=== PATIENT | female | born 1995 | race Caucasian/White ===

== ENCOUNTER 2018-03-21 21:03 | Emergency (ER) | payer OTHER ==
[2018-03-21 21:27] VITALS: RESP 18; TEMP 98.6
--- NOTE | 2018-03-21 22:06 | ED ---
Lower Extremity Injury HPI - General Chief Complaint: Extremity Injury, Lower Stated Complaint: feet pain Time Seen by Provider: 03/21/18 21:24 Source: patient, RN notes reviewed Mode of arrival: ambulatory Limitations: no limitations - History of Present Illness Initial Comments: This is a 22-year-old female presents to the emergency department with chief complaint of bilateral foot pain. Patient states that she developed discoloration to the toes on her left foot 2 weeks ago. She states that approximately 5 days later the toes became painful. She followed up with her primary care provider who diagnosed her with Raynaud's. Patient was instructed to keep her toes warm. She states that pain is improved by keeping them warm. She is concerned that something else is going on that she has not had total improvement in her symptoms. She states that she feels a tingling sensation in the toes of her right foot and in the index finger on her left hand. She states that she feels the Raynaud's coming on. Patient was not started on any oral or topical vasodilators. She denies any fevers or chills, chest pain shortness of breath, abdominal pain, nausea or vomiting, numbness or tingling. - Related Data Home Medications Medication Instructions Recorded Confirmed Control 1 tab PO DIRECTED 04/05/15 04/05/15 Levothyroxine Sodium [Synthroid] 75 mcg PO DAILY 04/05/15 04/05/15 metFORMIN HCL [Glucophage] 500 mg PO DAILY 04/05/15 04/05/15 Previous Rx's Medication Instructions Recorded Ibuprofen [Motrin] 600 mg PO Q6HR PRN #20 tab 04/05/15 amLODIPine [Norvasc] 5 mg PO DAILY #14 tab 03/21/18 Allergies Allergy/AdvReac Type Severity Reaction Status Date / Time some cosmetics Allergy Rash/Hives Uncoded 04/05/15 10:17 Review of Systems ROS Statement: Those systems with pertinent positive or pertinent negative responses have been documented in the HPI. ROS Other: All systems not noted in ROS Statement are negative. Past Medical History Past Medical History: Thyroid Disorder Additional Past Medical History / Comment(s): pcos, hypothyroid History of Any Multi-Drug Resistant Organisms: None Reported Past Surgical History: Adenoidectomy, Tonsillectomy Past Psychological History: No Psychological Hx Reported Smoking Status: Never smoker Past Alcohol Use History: None Reported Past Drug Use History: None Reported General Exam - General Exam Comments Initial Comments: General: Awake and alert, well-developed; in no apparent distress. HEENT: Head atraumatic, normocephalic. Pupils are equal, round and reactive to light. Extraocular movements intact. Oropharynx moist without erythema or exudate. Neck: Supple. Normal ROM. Cardiovascular: Regular rate and rhythm. No murmurs, rubs or gallops. Chest symmetrical. Pedal pulses are 2+ equal and palpable bilaterally. Respiratory: Lungs clear to auscultation bilaterally. No wheezes, rales or rhonchi. Normal respiratory effort with no use of accessory muscles. Musculoskeletal: Normal range of motion bilateral upper and lower chimneys. There is tenderness on palpation of the left toes. Ambulating normally. Skin: Blanchable, purple discoloration of toes on the left foot. Toes are cool to the touch. Sensation is intact. Neurological: Alert and oriented x3. CN II-XII grossly intact. Speech is fluent and answers are appropriate. No focal neuro deficits. Psychiatric: Normal mood and affect. No overt signs of depression or anxiety noted. Limitations: no limitations Course Vital Signs 03/21/18 21:23 Temperature 98.6 F Pulse Rate 115 H Respiratory 18 Rate Blood Pressure 159/99 O2 Sat by Pulse 99 Oximetry Medical Decision Making - Medical Decision Making This is a 22-year-old female who presents to the emergency department with chief complaint of foot pain. Patient was diagnosed with ring nods a couple of days ago as she has noticed discoloration and pain to the toes on her left foot. Patient was not started on any oral or topical vasodilators. She reports improvement in her symptoms and feels the same symptoms coming on in her right toes and index finger of the left hand. There is blanchable, purple discoloration to the toes on the left foot. Toes are cool to the touch. Patient is neurovascularly intact. Case was discussed with attending physician , Dr. Nunez. Recommended starting patient on a calcium channel roberto which is first line for Raynaud's. Patient is noted to have a high blood pressure here in the emergency department. Patient states that she normally has a higher blood pressure. She will be started on amlodipine 5 mg. Instructed patient to follow up next week with her primary care provider. Patient is in agreement with plan and voices understanding. She is in no acute distress and will be discharged home at this time. All questions answered. Disposition Clinical Impression: Raynauds disease Disposition: HOME SELF-CARE Condition: Good Instructions: Raynaud Disease (ED) Additional Instructions: Please take medications as prescribed. Please follow up with primary care provider within 1-2 days. Return to emergency department if symptoms should worsen or any concerns arise. Prescriptions: amLODIPine [Norvasc] 5 mg PO DAILY #14 tab Is patient prescribed a controlled substance at d/c from ED?: No Referrals: Jennifer Masters DO [Primary Care Provider] - 1-2 days Time of Disposition: 22:06
[2018-03-21 22:13] VITALS: BP 159/89; PULSE 89
== END 2018-03-21 22:11 | disposition home or self-care (01) ==
LOC: EC 21:03
DX: I73.00 Raynaud's syndrome without gangrene (principal); R03.0 Elevated blood-pressure reading, without diagnosis of hypertension; Z91.048 Other nonmedicinal substance allergy status; E03.9 Hypothyroidism, unspecified; Z79.3 Long term (current) use of hormonal contraceptives; Z79.84 Long term (current) use of oral hypoglycemic drugs; Z79.899 Other long term (current) drug therapy
CPT/HCPCS: 99283

== ENCOUNTER → 2018-06-04 | Outpatient (CLI) | payer OTHER ==
[2018-06-04 13:01] LABS: Blood Urea Nitrogen 15 mg/dL (7-17)
--- NOTE | 2018-06-04 20:59 | CT ---
EXAMINATION TYPE: CT angio thoracic and abdominal with bilateral lower extremity Run Off DATE OF EXAM: 06/04/2018 COMPARISON: None HISTORY: 22-year-old female ischemic necrosis of feet with color changes CT DLP: 1897.3 mGycm Automated exposure control for dose reduction was used. TECHNIQUE: CT scanning of the chest, abdomen, and pelvis with bilateral lower extremity runoff perfor med after IV contrast administration. Patient injected with 125 mL of Isovue 370. Coronal and sagitta l reconstructions performed. 3-D reconstructions generated on a dedicated independent workstation. FINDINGS: VASCULATURE: Motion artifact at the base of the heart limiting assessment of the aortic root. Thoracic aorta is normal caliber with conventional arch vessel branching anatomy. The celiac axis, SMA, bilateral grace renal arteries, and VLAD are patent. No evidence for abdominal aortic aneurysm. The iliac arteries are patent. On the right, the common and superficial femoral arteries as well as the profunda femoral artery are patent. At the level popliteal artery, there is a focal bleb or short segment thrombus of the vessel at or ju st above the level of the joint line. There are 2 prominent collateral branches which have their take off prior to this abnormal segment. There is satisfactory reconstitution of the popliteal artery beyo nd this level with normal anterior tibial artery and tibial peroneal trunk and three-vessel runoff in to the foot though the peroneal artery becomes diminutive. On the left, the common and superficial femoral arteries as well as the profunda femoral artery are p atent. At the level of the popliteal artery, there is sebastian vessel occlusion for a length of 4.5 cm and even tual reconstitution of the popliteal artery near the level of the fibular head. 2 prominent collatera l branches have a take off just at the level of the occlusion. The anterior tibial artery, tibial per lozano trunk, and its branches are all diminutive. The peroneal artery in particular becomes very diminutive at the ankle and the anterior tibial artery is seen to the level of the hindfoot. There is diminutive single vessel runoff into the foot. CHEST: Heart normal size without pericardial effusion. No mediastinal lymphadenopathy. Bulky and lobulated a ppearing thyroid gland. This may represent goiter and can be further evaluated with thyroid ultrasoun d. Bilateral axillary lymphadenopathy measuring up to 1.7 cm. Mild dependent atelectasis in the lungs without pleural effusion. ABDOMEN: Liver is enlarged measuring 21.5 cm. Suspect underlying fatty infiltration. Gallbladder, adrenal glands, kidneys, spleen, and pancreas appear within normal limits. Scattered prominent retroperitoneal lymph nodes measuring up to 1 cm and scattered mesenteric lymph n odes measuring up to 9 mm. No dilated small bowel, free fluid, or free air. Mild stool burden. No pericolonic inflammatory dunham e. Pelvis: Bladder urine distended. Uterus and both ovaries are visualized. No abnormal fluid collection in the pelvis. External iliac chain lymph nodes measure up to 9 mm on the right and 1.3 cm on the left. Inguinal lym ph nodes are present measuring up to 1.7 cm on the right. Bones: There appears to be normal origin of the medial head gastrocnemius. No osseous destructive process. Diffuse soft tissue swelling within the feet. IMPRESSION: 1. On the right, there is a focal short segment web or thrombus of the popliteal artery at or just ab ove the knee joint line level. The popliteal artery immediately reconstitutes but there are 2 promine nt collateral vessels that have their takeoff just above this web. 2. On the left, there is a 4.5 cm long segment of occluded popliteal artery that weakly reconstitutes at the level of the fibular head and provides weak supply to the 3 vessels of the leg. The peroneal artery becomes very diminutive at the ankle and the anterior tibial artery is seen to the level of th e hindfoot. Similar to the contralateral side, there are 2 prominent collateral vessels that have the ir takeoff just above the abnormal popliteal artery segment. 3. No deviated course of the popliteal arteries or abnormal muscle origin to the medial head gastrocn emius. Consider the possibility of underlying fibrous bands as a potential source of popliteal artery entrapment. 4. Mild bilateral axillary, inguinal, mesenteric, retroperitoneal, and pelvic lymphadenopathy. Correl ate for possible etiologies such as systemic infections including fungal infections, granulomatous di sease such as sarcoidosis, autoimmune disorders, or connective tissue diseases. The axillary and ingu inal lymph nodes can be monitored clinically and if any progressive enlargement is noted, tissue samp ling can be performed to exclude a more aggressive etiology. 5. Hepatomegaly (21.5 cm) with hepatic steatosis.
== END | disposition home or self-care (01) ==
LOC: RADCTMAIN 12:32
PROVIDERS: ATTEND Surgery Vascular Surgery
DX: I70.202 Unspecified atherosclerosis of native arteries of extremities, left leg (principal); K76.0 Fatty (change of) liver, not elsewhere classified; R16.0 Hepatomegaly, not elsewhere classified; R59.0 Localized enlarged lymph nodes
CPT/HCPCS: 82565; 84520; 75635; 71275; 36415; Q9967

== ENCOUNTER → 2018-11-20 | Outpatient (CLI) | payer OTHER ==
[2018-11-20 12:46] LABS: Partial Thromboplastin Time 28.4 sec (22.0-30.0); Prothrombin Time 10.7 sec (9.0-12.0)
[2018-11-20 12:54] LABS: Anisocytosis Slight; Basophils % (A) 0 %; Eosinophils # (A) 0.1 k/uL (0-0.7); Eosinophils % (A) 2 %; HCT 35.6 % (34.0-46.0); HGB 11.3 gm/dL (11.4-16.0); Lymphocytes # (A) 1.6 k/uL (1.0-4.8); Lymphocytes % (A) 25 %; MCH 25.1 pg (25.0-35.0); MCHC 31.7 g/dL (31.0-37.0); MCV 79.1 fL (80.0-100.0); Mean Platelet Volume 6.9; Microcytosis Slight; Monocytes # (A) 0.3 k/uL (0-1.0); Monocytes % (A) 5 %; Neutrophils % (A) 65 %; Platelet Count 329 k/uL (150-450); RDW 17.4 % (11.5-15.5); WBC 6.2 k/uL (3.8-10.6)
[2018-11-20 14:13] LABS: Appearance,Urine Clear (Clear); Bacteria,Urine Rare /hpf; Bilirubin,Urine Negative (Negative); Blood,Urine Negative (Negative); Color,Urine Yellow; Glucose,Urine (UA) Negative (Negative); Hyaline Casts,Urine 4 /lpf (0-2); Ketones,Urine Negative (Negative); Leukocyte Esterase,Urine Negative (Negative); Mucus,Urine Few /hpf; Nitrite,Urine Negative (Negative); Protein,Urine 1+ (Negative); RBC,Urine 1 /hpf (0-5); Specific Gravity,Urine 1.039 (1.001-1.035); Squamous Epithelial Cell,Urine <1 /hpf (0-4); Urobilinogen,Urine <2.0 mg/dL (<2.0); WBC,Urine 4 /hpf (0-5)
[2018-11-20 16:20] LABS: Albumin/Globulin Ratio 1.03 (1.60-3.17); Anion Gap 7.8 mmol/L (4.00-12.00); Calcium 9.2 mg/dL (8.7-10.3); Carbon Dioxide 22.2 mmol/L (21.6-31.8); Globulin 3.9 g/dL (1.6-3.3); Potassium 4.2 mmol/L (3.5-5.5); Total Bilirubin 0.3 mg/dL (0.2-1.2); Total Protein 7.9 g/dL (6.2-8.2)
== END | disposition home or self-care (01) ==
LOC: LABWHC1 11:47
PROVIDERS: ATTEND Surgery Vascular Surgery
DX: Z01.812 Encounter for preprocedural laboratory examination (principal); M62.262 Nontraumatic ischemic infarction of muscle, left lower leg
CPT/HCPCS: 36415; 80053; 81001; 85025; 85610; 85730; 87086

== ENCOUNTER 2020-09-20 11:55 | Emergency (ER) | payer OTHER ==
[2020-09-20 12:05] VITALS: BP 161/106; PULSE 96; TEMP 98.3
--- NOTE | 2020-09-20 12:06 | ED ---
General Adult HPI - General Source: patient, RN notes reviewed Mode of arrival: ambulatory Limitations: no limitations <Mckay Stoner - Last Filed: 09/20/20 12:00> <Stephanie Busby - Last Filed: 09/20/20 16:54> - General Stated complaint: chest pain, back pain Time Seen by Provider: 09/20/20 12:00 - History of Present Illness Initial comments: This a 24-year-old female presents emergency Department chief complaint of pleuritic chest pain, shortness breath. Patient states she that she was having an asthma issues but states it has not gone away on alleviated with her inhaler. Patient states that she talk to her PCP is concerned about possible blood clot. Patient does have an ongoing clotting disorder and which she has had a pop liteal bypass. Patient states that this was done hand Guffey. Patient is not taking blood thinners currently. Patient is on control but states that it's not hormonal. Patient denies any increasing leg pain or swelling. (Mckay Stoner) - Related Data Home Medications Medication Instructions Recorded Confirmed Control 1 tab PO DIRECTED 04/05/15 04/05/15 Levothyroxine Sodium [Synthroid] 75 mcg PO DAILY 04/05/15 04/05/15 metFORMIN HCL [Glucophage] 500 mg PO DAILY 04/05/15 04/05/15 Previous Rx's Medication Instructions Recorded Ibuprofen [Motrin] 600 mg PO Q6HR PRN #20 tab 04/05/15 amLODIPine [Norvasc] 5 mg PO DAILY #14 tab 03/21/18 Allergies Allergy/AdvReac Type Severity Reaction Status Date / Time some cosmetics Allergy Rash/Hives Uncoded 09/20/20 12:00 Review of Systems ROS Other: All systems not noted in ROS Statement are negative. <Mckay Stoner - Last Filed: 09/20/20 12:00> ROS Other: All systems not noted in ROS Statement are negative. <Stephanie Busby - Last Filed: 09/20/20 16:54> ROS Statement: Those systems with pertinent positive or pertinent negative responses have been documented in the HPI. Past Medical History Past Medical History: Thyroid Disorder Additional Past Medical History / Comment(s): pcos, hypothyroid History of Any Multi-Drug Resistant Organisms: None Reported Past Surgical History: Adenoidectomy, Tonsillectomy Past Psychological History: No Psychological Hx Reported Past Alcohol Use History: None Reported Past Drug Use History: None Reported <Mckay Stoner - Last Filed: 09/20/20 12:00> General Exam General appearance: alert, in no apparent distress Head exam: Present: atraumatic, normocephalic, normal inspection Eye exam: Present: normal appearance, PERRL, EOMI. Absent: scleral icterus, conjunctival injection, periorbital swelling ENT exam: Present: normal exam, normal oropharynx, mucous membranes moist Neck exam: Present: normal inspection. Absent: tenderness, meningismus, lymphadenopathy Respiratory exam: Present: normal lung sounds bilaterally. Absent: respiratory distress, wheezes, rales, rhonchi, stridor, chest wall tenderness Cardiovascular Exam: Present: regular rate, normal rhythm, normal heart sounds. Absent: systolic murmur, diastolic murmur, rubs, gallop, clicks <Mckay Stoner - Last Filed: 09/20/20 12:00> Course Vital Signs 09/20/20 09/20/20 12:00 16:02 Temperature 98.3 F Pulse Rate 96 Respiratory 18 20 Rate Blood Pressure 161/106 O2 Sat by Pulse 100 Oximetry Medical Decision Making - Lab Data Result diagrams: 09/20/20 12:01 09/20/20 12:01 <Stephanie Busby - Last Filed: 09/20/20 16:54> - Medical Decision Making Patient was seen and evaluated in the ER, patient has hx of lupus and clotting disorder, on [id number] daily, 1 week of pleuritic chest pain and feeling SOB Vitals stable, no hypoxia CT scan with no PE, pneumonia or emergent findings Recommend follow up with pulmonology due to family history of Lupus and pulmonary fibrosis, patient agreeable to plan for discharge home at this time (Stephanie Busby) - Lab Data Lab Results 09/20/20 09/20/20 09/20/20 Range/Units 12:01 12:01 12:02 WBC 7.1 (3.8-10.6) k/uL RBC 4.09 (3.80-5.40) m/uL Hgb 11.4 (11.4-16.0) gm/dL Hct 34.3 (34.0-46.0) % MCV 83.7 (80.0-100.0) fL MCH 27.9 (25.0-35.0) pg MCHC 33.3 (31.0-37.0) g/dL RDW 13.9 (11.5-15.5) % Plt Count 340 (150-450) k/uL MPV 6.9 Neutrophils % 70 % Lymphocytes % 16 % Monocytes % 7 % Eosinophils % 4 % Basophils % 1 % Neutrophils # 4.9 (1.3-7.7) k/uL Lymphocytes # 1.1 (1.0-4.8) k/uL Monocytes # 0.5 (0-1.0) k/uL Eosinophils # 0.3 (0-0.7) k/uL Basophils # 0.0 (0-0.2) k/uL PT (9.0-12.0) sec INR (<1.2) APTT (22.0-30.0) sec D-Dimer (<0.60) mg/L FEU Sodium 137 (137-145) mmol/L Potassium 4.6 (3.5-5.1) mmol/L Chloride 105 (98-107) mmol/L Carbon Dioxide 24 (22-30) mmol/L Anion Gap 8 mmol/L BUN 19 H (7-17) mg/dL Creatinine 0.50 L (0.52-1.04) mg/dL Est GFR (CKD-EPI)AfAm >90 (>60 ml/min/1.73 sqM) Est GFR (CKD-EPI)NonAf >90 (>60 ml/min/1.73 sqM) Glucose 91 (74-99) mg/dL Calcium 9.0 (8.4-10.2) mg/dL Troponin I 0.016 (0.000-0.034) ng/mL Coronavirus (PCR) (Not Detectd) 09/20/20 09/20/20 Range/Units 14:27 16:10 WBC (3.8-10.6) k/uL RBC (3.80-5.40) m/uL Hgb (11.4-16.0) gm/dL Hct (34.0-46.0) % MCV (80.0-100.0) fL MCH (25.0-35.0) pg MCHC (31.0-37.0) g/dL RDW (11.5-15.5) % Plt Count (150-450) k/uL MPV Neutrophils % % Lymphocytes % % Monocytes % % Eosinophils % % Basophils % % Neutrophils # (1.3-7.7) k/uL Lymphocytes # (1.0-4.8) k/uL Monocytes # (0-1.0) k/uL Eosinophils # (0-0.7) k/uL Basophils # (0-0.2) k/uL PT 10.2 (9.0-12.0) sec INR 0.9 (<1.2) APTT 24.3 (22.0-30.0) sec D-Dimer 7.08 H (<0.60) mg/L FEU Sodium (137-145) mmol/L Potassium (3.5-5.1) mmol/L Chloride (98-107) mmol/L Carbon Dioxide (22-30) mmol/L Anion Gap mmol/L BUN (7-17) mg/dL Creatinine (0.52-1.04) mg/dL Est GFR (CKD-EPI)AfAm (>60 ml/min/1.73 sqM) Est GFR (CKD-EPI)NonAf (>60 ml/min/1.73 sqM) Glucose (74-99) mg/dL Calcium (8.4-10.2) mg/dL Troponin I (0.000-0.034) ng/mL Coronavirus (PCR) Not Detected (Not Detectd) Disposition <Mckay Stoner M - Last Filed: 09/20/20 12:00> Is patient prescribed a controlled substance at d/c from ED?: No <Stephanie Busby P - Last Filed: 09/20/20 16:54> Clinical Impression: Pleuritic chest pain Disposition: HOME SELF-CARE Instructions (If sedation given, give patient instructions): Pleurisy (DC) Referrals: Jennifer Masters DO [Primary Care Provider] - 1-2 days Damaso Castelan DO [Doctor of Osteopathic Medicine] - 1-2 days Wilmer Espinoza MD [STAFF PHYSICIAN] - 1-2 days Reno Schwartz MD [STAFF PHYSICIAN] - 1-2 days
--- NOTE | 2020-09-20 12:42 | XR ---
EXAMINATION TYPE: XR chest 2V DATE OF EXAM: 09/20/2020 COMPARISON: None HISTORY: 24-year-old female with shortness of breath TECHNIQUE: PA and lateral views FINDINGS: Heart upper limits of normal in size. Aorta and pulmonary vasculature within normal limits. Bilateral nipple bars. No consolidation or pleural effusion. IMPRESSION: The heart appears borderline enlarged. If indicated, cardiac echo can be considered. Otherwise, no ac ishan process seen.
[2020-09-20 12:44] LABS: Basophils % (A) 1 %; Eosinophils # (A) 0.3 k/uL (0-0.7); Eosinophils % (A) 4 %; HCT 34.3 % (34.0-46.0); HGB 11.4 gm/dL (11.4-16.0); Lymphocytes # (A) 1.1 k/uL (1.0-4.8); Lymphocytes % (A) 16 %; MCH 27.9 pg (25.0-35.0); MCHC 33.3 g/dL (31.0-37.0); MCV 83.7 fL (80.0-100.0); Mean Platelet Volume 6.9; Monocytes # (A) 0.5 k/uL (0-1.0); Monocytes % (A) 7 %; Neutrophils # (A) 4.9 k/uL (1.3-7.7); Neutrophils % (A) 70 %; Platelet Count 340 k/uL (150-450); RBC 4.09 m/uL (3.80-5.40); RDW 13.9 % (11.5-15.5); WBC 7.1 k/uL (3.8-10.6)
[2020-09-20 12:55] LABS: African American GFR (CKD) >90 (>60 ml/min/1.73 sqM); Anion Gap 8 mmol/L; Blood Urea Nitrogen 19 mg/dL (7-17); Carbon Dioxide 24 mmol/L (22-30); Chloride 105 mmol/L (98-107); Glucose 91 mg/dL (74-99); Non-African American GFR(CKD) >90 (>60 ml/min/1.73 sqM); Potassium 4.6 mmol/L (3.5-5.1); Sodium 137 mmol/L (137-145)
[2020-09-20 15:32] LABS: INR 0.9 (<1.2); Partial Thromboplastin Time 24.3 sec (22.0-30.0); Prothrombin Time 10.2 sec (9.0-12.0)
[2020-09-20 15:36] LABS: D-Dimer 7.08 mg/L FEU (<0.60)
--- NOTE | 2020-09-20 16:21 | CT ---
EXAMINATION TYPE: CT chest angio for PE DATE OF EXAM: 09/20/2020 COMPARISON: None HISTORY: Shortness of breath and elevated D-Dimer. CT DLP: 373 mGycm CONTRAST: CT chest with contrast and 3D reconstruction with MIP imaging is performed with IV Contrast, patient injected with 100 mL of Isovue 370. Contrast-enhanced CT of the chest was performed through the course of the pulmonary arteries with latisha g and mediastinal window settings submitted. 3D reconstruction with MIP imaging was also performed. PULMONARY ARTERIES: The pulmonary arteries and their major tributaries are patent. I do not see stacey dence for sizable filling defect to suggest pulmonary embolic process. LUNGS: The lungs are clear and free of infiltrate. No evidence for atelectasis. No pulmonary nodule or mass is detected. No pleural effusion. MEDIASTINUM: Thoracic aorta is of normal caliber,however, evaluation is limited given timing of the contrast bolus. If there is concern for thoracic aortic pathology consider JEANA. Correlate clinicall y . The heart is not enlarged. No evidence for mediastinal mass. No mediastinal lymph nodes greater than 1cm. HILAR STRUCTURES: No evidence for mass. No hilar lymph nodes greater than 1 cm. UPPER ABDOMEN: No significant abnormality is seen. IMPRESSION: 1. No evidence for Pulmonary embolism at this time.
[2020-09-20 17:13] VITALS: RESP 22
== END 2020-09-20 17:05 | disposition home or self-care (01) ==
LOC: EC 11:55
DX: R07.81 Pleurodynia (principal); R06.02 Shortness of breath; E03.9 Hypothyroidism, unspecified; Z20.822 Contact with and (suspected) exposure to COVID-19; Z79.890 Hormone replacement therapy
CPT/HCPCS: 36415; 71046; 71275; 80048; 84484; 85025; 85379; 85610; 85730; 87635; 93005; 99285

== ENCOUNTER 2020-10-07 02:18 | Emergency (ER) | payer OTHER ==
[2020-10-07 02:26] VITALS: TEMP 98
[2020-10-07] MEDS ORDERED: KETOROLAC 15 MG/ML 1 ML VIAL IVP STA (02:59)
--- NOTE | 2020-10-07 03:00 | ED ---
General Adult HPI - General Chief complaint: Shortness of Breath Stated complaint: ERIC Time Seen by Provider: 10/07/20 02:44 Source: patient Mode of arrival: ambulatory Limitations: no limitations - History of Present Illness Initial comments: This patient is 22-year-old woman who presents to have evaluation of pleuritic right-sided chest pain. Patient is triaged as shortness of breath but states that that is because it is causing pain when she tries to take a deep breath. Symptoms have been getting progressively worse over the past 2 days. Prior to that she had had some substernal aching chest pain and had been seen here this was approximately week ago. No leg pain or swelling. Onset/Timin -: days(s) Location: chest Radiation: non-radiation Quality: sharp Consistency: constant Improves with: none Worsens with: other (Inspiration) Associated Symptoms: chest pain Treatments Prior to Arrival: none - Related Data Home Medications Medication Instructions Recorded Confirmed Control 1 tab PO DIRECTED 04/05/15 04/05/15 Levothyroxine Sodium [Synthroid] 75 mcg PO DAILY 04/05/15 04/05/15 metFORMIN HCL [Glucophage] 500 mg PO DAILY 04/05/15 04/05/15 Previous Rx's Medication Instructions Recorded Ibuprofen [Motrin] 600 mg PO Q6HR PRN #20 tab 04/05/15 amLODIPine [Norvasc] 5 mg PO DAILY #14 tab 03/21/18 Acetaminophen-Codeine 300-30mg 1 tab PO Q4H PRN #20 tablet 10/07/20 [Tylenol w/codeine #3] Allergies Allergy/AdvReac Type Severity Reaction Status Date / Time some cosmetics Allergy Rash/Hives Uncoded 10/07/20 02:26 Review of Systems ROS Statement: Those systems with pertinent positive or pertinent negative responses have been documented in the HPI. ROS Other: All systems not noted in ROS Statement are negative. Constitutional: Denies: fever, chills Respiratory: Reports: as per HPI. Denies: cough, dyspnea, wheezes, hemoptysis Cardiovascular: Reports: chest pain. Denies: palpitations, orthopnea, edema, syncope Gastrointestinal: Denies: abdominal pain, nausea, vomiting Genitourinary: Denies: dysuria, hematuria Musculoskeletal: Denies: back pain Skin: Denies: rash Neurological: Denies: headache, weakness, numbness Past Medical History Past Medical History: Thyroid Disorder Additional Past Medical History / Comment(s): pcos, hypothyroid, lupus, DVT History of Any Multi-Drug Resistant Organisms: None Reported Past Surgical History: Adenoidectomy, Tonsillectomy Additional Past Surgical History / Comment(s): DVT removed left leg 2018 Past Psychological History: Anxiety, Depression Smoking Status: Never smoker Past Alcohol Use History: Occasional Past Drug Use History: None Reported General Exam Limitations: no limitations General appearance: alert, in no apparent distress Head exam: Present: atraumatic, normocephalic Eye exam: Present: normal appearance. Absent: scleral icterus, conjunctival injection Neck exam: Present: normal inspection Respiratory exam: Present: normal lung sounds bilaterally. Absent: respiratory distress, wheezes, rales, rhonchi, stridor, chest wall tenderness, accessory muscle use, decreased breath sounds Cardiovascular Exam: Present: regular rate, normal rhythm, normal heart sounds. Absent: systolic murmur, diastolic murmur, rubs, gallop GI/Abdominal exam: Present: soft. Absent: distended, tenderness, guarding, rebound, rigid, mass Extremities exam: Present: normal inspection, normal capillary refill. Absent: pedal edema, calf tenderness Back exam: Present: normal inspection. Absent: CVA tenderness (R), CVA tenderness (L) Neurological exam: Present: alert Skin exam: Present: warm, dry, intact, normal color. Absent: rash Course Vital Signs 10/07/20 10/07/20 10/07/20 02:20 04:08 04:58 Temperature 98 F Pulse Rate 99 81 86 Respiratory 20 18 20 Rate Blood Pressure 175/110 166/112 105/104 O2 Sat by Pulse 100 100 100 Oximetry EKG Findings - EKG Results: EKG: interpreted by ERMD, sinus rhythm (Rate 78 bpm), normal axis, normal QRS - Blocks, Adams, Hypertrophy, ST Abn: Repolarization changes or abnormalities: nonspecific abnormality, ST segment, and/or T wave Medical Decision Making - Lab Data Result diagrams: 10/07/20 03:08 10/07/20 03:08 Lab Results 10/07/20 10/07/20 10/07/20 Range/Units 03:08 03:08 03:08 WBC 8.8 (3.8-10.6) k/uL RBC 4.37 (3.80-5.40) m/uL Hgb 11.3 L (11.4-16.0) gm/dL Hct 36.2 (34.0-46.0) % MCV 82.9 (80.0-100.0) fL MCH 25.8 (25.0-35.0) pg MCHC 31.1 (31.0-37.0) g/dL RDW 14.4 (11.5-15.5) % Plt Count 387 (150-450) k/uL MPV 7.0 Neutrophils % 79 % Lymphocytes % 11 % Monocytes % 5 % Eosinophils % 3 % Basophils % 0 % Neutrophils # 7.0 (1.3-7.7) k/uL Lymphocytes # 1.0 (1.0-4.8) k/uL Monocytes # 0.4 (0-1.0) k/uL Eosinophils # 0.2 (0-0.7) k/uL Basophils # 0.0 (0-0.2) k/uL Hypochromasia Moderate D-Dimer 6.09 H (<0.60) mg/L FEU Sodium (137-145) mmol/L Potassium (3.5-5.1) mmol/L Chloride (98-107) mmol/L Carbon Dioxide (22-30) mmol/L Anion Gap mmol/L BUN (7-17) mg/dL Creatinine (0.52-1.04) mg/dL Est GFR (CKD-EPI)AfAm (>60 ml/min/1.73 sqM) Est GFR (CKD-EPI)NonAf (>60 ml/min/1.73 sqM) Glucose (74-99) mg/dL Calcium (8.4-10.2) mg/dL Total Bilirubin (0.2-1.3) mg/dL AST (14-36) U/L ALT (4-34) U/L Alkaline Phosphatase (38-126) U/L Troponin I (0.000-0.034) ng/mL Total Protein (6.3-8.2) g/dL Albumin (3.5-5.0) g/dL Urine Color Colorless Urine Appearance Clear (Clear) Urine pH 6.5 (5.0-8.0) Ur Specific [place] 1.025 (1.001-1.035) Urine Protein Negative (Negative) Urine Glucose (UA) Negative (Negative) Urine Ketones Negative (Negative) Urine Blood Small H (Negative) Urine Nitrite Negative (Negative) Urine Bilirubin Negative (Negative) Urine Urobilinogen <2.0 (<2.0) mg/dL Ur Leukocyte Esterase Moderate H (Negative) Urine RBC 1 (0-5) /hpf Urine WBC 1 (0-5) /hpf Ur Squamous Epith Cells 4 (0-4) /hpf Urine Bacteria Rare H (None) /hpf Urine Mucus Rare H (None) /hpf Urine HCG, Qual (Not Detectd) 10/07/20 10/07/20 10/07/20 Range/Units 03:08 03:08 03:08 WBC (3.8-10.6) k/uL RBC (3.80-5.40) m/uL Hgb (11.4-16.0) gm/dL Hct (34.0-46.0) % MCV (80.0-100.0) fL MCH (25.0-35.0) pg MCHC (31.0-37.0) g/dL RDW (11.5-15.5) % Plt Count (150-450) k/uL MPV Neutrophils % % Lymphocytes % % Monocytes % % Eosinophils % % Basophils % % Neutrophils # (1.3-7.7) k/uL Lymphocytes # (1.0-4.8) k/uL Monocytes # (0-1.0) k/uL Eosinophils # (0-0.7) k/uL Basophils # (0-0.2) k/uL Hypochromasia D-Dimer (<0.60) mg/L FEU Sodium 137 (137-145) mmol/L Potassium 4.9 (3.5-5.1) mmol/L Chloride 105 (98-107) mmol/L Carbon Dioxide 23 (22-30) mmol/L Anion Gap 9 mmol/L BUN 25 H (7-17) mg/dL Creatinine 0.52 (0.52-1.04) mg/dL Est GFR (CKD-EPI)AfAm >90 (>60 ml/min/1.73 sqM) Est GFR (CKD-EPI)NonAf >90 (>60 ml/min/1.73 sqM) Glucose 99 (74-99) mg/dL Calcium 9.0 (8.4-10.2) mg/dL Total Bilirubin 0.6 (0.2-1.3) mg/dL AST 55 H (14-36) U/L ALT 35 H (4-34) U/L Alkaline Phosphatase 39 (38-126) U/L Troponin I <0.012 (0.000-0.034) ng/mL Total Protein 8.0 (6.3-8.2) g/dL Albumin 3.8 (3.5-5.0) g/dL Urine Color Urine Appearance (Clear) Urine pH (5.0-8.0) Ur Specific [place] (1.001-1.035) Urine Protein (Negative) Urine Glucose (UA) (Negative) Urine Ketones (Negative) Urine Blood (Negative) Urine Nitrite (Negative) Urine Bilirubin (Negative) Urine Urobilinogen (<2.0) mg/dL Ur Leukocyte Esterase (Negative) Urine RBC (0-5) /hpf Urine WBC (0-5) /hpf Ur Squamous Epith Cells (0-4) /hpf Urine Bacteria (None) /hpf Urine Mucus (None) /hpf Urine HCG, Qual Not Detected (Not Detectd) Disposition Clinical Impression: Pleuritic chest pain Disposition: HOME SELF-CARE Condition: Good Instructions (If sedation given, give patient instructions): Pleurisy (DC) Additional Instructions: As we discussed, follow with the weekend anchor to have an echocardiogram. Return immediately should she develop any shortness of breath, coughing anything up or any other worsening. Prescriptions: Acetaminophen-Codeine 300-30mg [Tylenol w/codeine #3] 1 tab PO Q4H PRN #20 tablet PRN Reason: Pain Is patient prescribed a controlled substance at d/c from ED?: Yes When asked, does pt state using other controlled substances?: No If prescribed controlled substance>3 days was MAPS reviewed?: Prescribed <3 Days If opioid is for acute pain is fill amount 7 days or less?: Yes If Rx opioid, was Start Talking consent form obtained?: Yes Referrals: Jennifer Masters, DO [Primary Care Provider] - 1-2 days
[2020-10-07 03:24] LABS: Basophils % (A) 0 %; Eosinophils # (A) 0.2 k/uL (0-0.7); Eosinophils % (A) 3 %; HCT 36.2 % (34.0-46.0); HGB 11.3 gm/dL (11.4-16.0); Hypochromasia Moderate; Lymphocytes % (A) 11 %; MCH 25.8 pg (25.0-35.0); MCHC 31.1 g/dL (31.0-37.0); MCV 82.9 fL (80.0-100.0); Monocytes # (A) 0.4 k/uL (0-1.0); Monocytes % (A) 5 %; Neutrophils % (A) 79 %; Platelet Count 387 k/uL (150-450); RBC 4.37 m/uL (3.80-5.40); RDW 14.4 % (11.5-15.5); WBC 8.8 k/uL (3.8-10.6)
[2020-10-07 03:45] LABS: ALT 35 U/L (4-34); AST 55 U/L (14-36); African American GFR (CKD) >90 (>60 ml/min/1.73 sqM); Albumin 3.8 g/dL (3.5-5.0); Alkaline Phosphatase 39 U/L (38-126); Anion Gap 9 mmol/L; Blood Urea Nitrogen 25 mg/dL (7-17); Carbon Dioxide 23 mmol/L (22-30); Chloride 105 mmol/L (98-107); Glucose 99 mg/dL (74-99); Non-African American GFR(CKD) >90 (>60 ml/min/1.73 sqM); Potassium 4.9 mmol/L (3.5-5.1); Sodium 137 mmol/L (137-145); Total Bilirubin 0.6 mg/dL (0.2-1.3)
[2020-10-07] MEDS ORDERED: diphenhydrAMINE 50 MG/ML 1 ML VIAL IVP STA (04:01)
--- NOTE | 2020-10-07 04:17 | XR ---
EXAM: XR Chest, 2 Views CLINICAL HISTORY: ITS.REASON XR Reason: difficulty breathing TECHNIQUE: Frontal and lateral views of the chest. COMPARISON: 09/20/2020 FINDINGS: Lungs: Slight right lung base opacity. Pleural space: No effusion. Heart: Mild cardiomegaly. Bones/joints: No acute findings. IMPRESSION: Cardiomegaly. Slight right lung base opacity.
[2020-10-07 04:59] VITALS: BP 105/104; PULSE 86; RESP 20
--- NOTE | 2020-10-07 04:59 | CT ---
EXAM: CT Angiography Chest With Intravenous Contrast CLINICAL HISTORY: ITS.REASON CT Reason: pleuritic R chest pain TECHNIQUE: Axial computed tomographic angiography images of the chest with intravenous contrast. CTDI is 10.67 mGy and DLP is 332.7 mGy-cm. This CT exam was performed using one or more of the following dose reduction techniques: automated exposure control, adjustment of the mA and/or kV according to patient size, and/or use of iterative reconstruction technique. MIP reconstructed images were created and reviewed. COMPARISON: 09/20/2020 FINDINGS: Pulmonary arteries: No filling defects. Dilated to 3.2 cm. Aorta: No thoracic aortic aneurysm. Lungs: No mass. No consolidation. Pleural space: No pneumothorax. No effusion. Heart: Redemonstration of cardiomegaly with similar pericardial effusion. Bones/joints: No acute fracture or dislocation. Soft tissues: Unremarkable. Lymph nodes: No enlarged lymph nodes. IMPRESSION: Redemonstration of cardiomegaly with similar mild pericardial effusion. Pulmonary arteries dilated to 3.2 cm, correlate with pulmonary arterial hypertension.
[2020-10-07 05:07] LABS: Appearance,Urine Clear (Clear); Bacteria,Urine Rare /hpf; Bilirubin,Urine Negative (Negative); Blood,Urine Small (Negative); Color,Urine Colorless; Glucose,Urine (UA) Negative (Negative); Ketones,Urine Negative (Negative); Leukocyte Esterase,Urine Moderate (Negative); Mucus,Urine Rare /hpf; Nitrite,Urine Negative (Negative); PH, Urine 6.5 (5.0-8.0); Protein,Urine Negative (Negative); RBC,Urine 1 /hpf (0-5); Specific Gravity,Urine 1.025 (1.001-1.035); Squamous Epithelial Cell,Urine 4 /hpf (0-4); Urobilinogen,Urine <2.0 mg/dL (<2.0); WBC,Urine 1 /hpf (0-5)
== END 2020-10-07 05:29 | disposition home or self-care (01) ==
LOC: EC 02:18
DX: R07.81 Pleurodynia (principal); E03.9 Hypothyroidism, unspecified; Z79.890 Hormone replacement therapy; Z79.84 Long term (current) use of oral hypoglycemic drugs; Z91.048 Other nonmedicinal substance allergy status; Z86.718 Personal history of other venous thrombosis and embolism
CPT/HCPCS: 36415; 71046; 71275; 80053; 81001; 81025; 84484; 85025; 85379; 93005; 96374; 96375; 99285

== ENCOUNTER → 2020-10-28 | Outpatient (CLI) | payer OTHER ==
--- NOTE | 2020-10-28 12:30 | XR ---
EXAMINATION TYPE: XR chest 2V DATE OF EXAM: 10/28/2020 COMPARISON: 10/07/2020 HISTORY: Chest pain TECHNIQUE: Frontal and lateral views of the chest are obtained. FINDINGS: There is no focal air space opacity. No evidence for pneumothorax. No pleural effusion. The cardiac silhouette size is within normal limits. The osseous structures are grossly intact. IMPRESSION: 1. No acute cardiopulmonary process.
--- NOTE | 2020-10-28 12:32 | CT ---
EXAMINATION TYPE: CT chest wo con DATE OF EXAM: 10/28/2020 COMPARISON: 10/07/2020 HISTORY: chest pain, SOB. hx of lupus. CT DLP: 751.3 mGycm. Automated Exposure Control for Dose Reduction was Utilized. TECHNIQUE: CT scan of the thorax is performed without IV contrast. FINDINGS: LUNGS: The lungs are grossly clear, there is no concerning parenchymal mass or nodule identified. T here is no pneumothorax seen. The tracheobronchial tree is patent. Mild thickening of the minor. No interlobular septal. There is a small right pleural effusion. MEDIASTINUM: Lack of IV contrast is noted to limit evaluation for mediastinal and especially hilar ad enopathy. There are no definitive greater than 1 cm hilar or mediastinal lymph nodes heart is promine nt in size and there is a small moderate-sized pericardial effusion. Effusion is seen. OTHER: Thyroid gland is prominent.. IMPRESSION: 1. Small right pleural effusion. 2. No diagnostic evidence of chronic interstitial lung disease. 3. Small to moderate effusion with cardiomegaly
--- NOTE | 2020-10-28 13:44 | NM ---
EXAMINATION TYPE: NM pul vent and perfuse DATE OF EXAM: 10/28/2020 COMPARISON: NONE HISTORY: R06.09 Other forms of dyspnea TECHNIQUE: Utilizing inhalation of 31.4 mCi Tc 99m DTPA aerosol and intravenous injection of 4.9 mCi of Tc 99m MAA, ventilation and perfusion images are acquired post injection in multiple projections. FINDINGS: Normal radiotracer distribution is noted in the lungs. There is no evidence of mismatched defects. IMPRESSION: Very low probability for pulmonary.
== END | disposition home or self-care (01) ==
LOC: RADCTMAIN 11:08
PROVIDERS: ATTEND Internal Medicine Critical Care Medicine
DX: J90 Pleural effusion, not elsewhere classified (principal); I51.7 Cardiomegaly; R07.9 Chest pain, unspecified; R06.09 Other forms of dyspnea
CPT/HCPCS: 71046; 71250; 78582; A9540; A9567

== ENCOUNTER → 2021-01-19 | Outpatient (CLI) | payer OTHER | END | disposition home or self-care (01) | LOC: LABWHC1 16:14 | PROVIDERS: ATTEND Emergency Medicine | DX: Z20.822 Contact with and (suspected) exposure to COVID-19 (principal) | CPT/HCPCS: 87635 ==

== ENCOUNTER → 2021-05-16 | Outpatient (CLI) | payer OTHER | END | disposition home or self-care (01) | LOC: LABMAIN 21:00 | PROVIDERS: ATTEND Emergency Medicine | DX: Z20.822 Contact with and (suspected) exposure to COVID-19 (principal) | CPT/HCPCS: 87635 ==

== ENCOUNTER → 2021-05-17 | Outpatient (CLI) | payer OTHER | END | disposition home or self-care (01) | LOC: LABWHC1 16:35 | PROVIDERS: ATTEND Emergency Medicine | DX: Z20.822 Contact with and (suspected) exposure to COVID-19 (principal) | CPT/HCPCS: 87635 ==

== ENCOUNTER → 2021-08-05 | Outpatient (CLI) | payer OTHER ==
[2021-08-05 15:48] LABS: Appearance,Urine Clear (Clear); Bilirubin,Urine Negative (Negative); Blood,Urine Negative (Negative); Color,Urine Yellow; Glucose,Urine (UA) Negative (Negative); Ketones,Urine Negative (Negative); Leukocyte Esterase,Urine Negative (Negative); Mucus,Urine Occasional /hpf; Nitrite,Urine Negative (Negative); Protein,Urine 1+ (Negative); RBC,Urine 1 /hpf (0-5); Specific Gravity,Urine 1.033 (1.001-1.035); Squamous Epithelial Cell,Urine 3 /hpf (0-4); Urobilinogen,Urine <2.0 mg/dL (<2.0); WBC,Urine 2 /hpf (0-5)
[2021-08-05 19:29] LABS: Basophils # (A) 0.02 X 10*3/uL (0.00-0.10); Basophils % (A) 0.3 %; Eosinophils # (A) 0.22 X 10*3/uL (0.04-0.35); Eosinophils % (A) 3.6 %; HGB 12.3 g/dL (12.0-15.0); Immature Grans, Automated 0.2 %; Lymphocytes # (A) 1.26 X 10*3/uL (0.90-5.00); Lymphocytes % (A) 20.9 %; MCH 29.7 pg (27.0-32.0); MCHC 33.2 g/dL (32.0-37.0); MCV 89.4 fL (80.0-97.0); Mean Platelet Volume 10.6 fL (9.5-12.2); Monocytes # (A) 0.91 X 10*3/uL (0.20-1.00); Monocytes % (A) 15.1 %; NRBC Per 100 WBC 0 /100 WBCS (0.0-0.0); Neutrophils # (A) 3.62 X 10*3/uL (1.80-7.70); Neutrophils % (A) 59.9 %; Platelet Count 169 X 10*3/uL (140-440); RBC 4.14 X 10*6/uL (4.10-5.20); RDW 13.4 % (11.5-14.5); WBC 6.04 X 10*3/uL (4.50-10.00)
[2021-08-05 19:36] LABS: ALT 37 U/L (8-44); AST 36 U/L (13-35); Albumin 4.3 g/dL (3.8-4.9); Bilirubin, Conjugated <0.20 mg/dL (0.20-0.40)
[2021-08-05 20:16] LABS: Alkaline Phosphatase 38 U/L (41-126)
[2021-08-05 20:34] LABS: African American GFR (CKD) 141.5 (60.0-200.0); Blood Urea Nitrogen 20.1 mg/dL (9.0-27.0); Calcium 9.1 mg/dL (8.7-10.3); Carbon Dioxide 18.1 mmol/L (20.0-27.5); Chloride 103 mmol/L (96-109); Non-African American GFR(CKD) 122.1 (60.0-200.0); Potassium 3.8 mmol/L (3.5-5.5); Sodium 138 mmol/L (135-145); Total Protein 7.3 g/dL (6.2-8.2)
[2021-08-05 21:08] LABS: Erythrocyte Sedimentation Rate 30 mm/Hr (0-20)
[2021-08-06 03:49] LABS: DNA Double-Stranded NEGATIVE (NEGATIVE)
== END | disposition home or self-care (01) ==
LOC: LABWHC1 14:19
PROVIDERS: ATTEND Internal Medicine Rheumatology
DX: M32.9 Systemic lupus erythematosus, unspecified (principal); Z79.899 Other long term (current) drug therapy
CPT/HCPCS: 36415; 80051; 81001; 82040; 82247; 82310; 82565; 84075; 84155; 84450; 84460; 84520; 85025; 85652; 86140; 86160; 86225

== ENCOUNTER → 2021-10-27 | Outpatient (CLI) | payer OTHER ==
--- NOTE | 2021-10-27 16:03 | XR ---
EXAMINATION TYPE: XR foot complete RT DATE OF EXAM: 10/27/2021 COMPARISON: NONE HISTORY: 25-year-old female M21.611 TECHNIQUE: 3 views FINDINGS: Type II accessory navicular. There is hallux valgus and bunion formation. Castle's toe. No acute frac ture, subluxation, or dislocation. IMPRESSION: 1. Hallux valgus and bunion formation. 2. Castle's toe. 3. Type II accessory navicular which can become symptomatic in some patients. Correlate for any point tenderness here.
== END | disposition home or self-care (01) ==
LOC: RADXRMAIN 09:59
PROVIDERS: ATTEND Podiatrist Foot & Ankle Surgery
DX: M20.10 Hallux valgus (acquired), unspecified foot (principal); M21.611 Bunion of right foot; G57.61 Lesion of plantar nerve, right lower limb